=== PATIENT | female | born 1970 | race African-American/Black ===

== ENCOUNTER 2020-03-25 16:07 | Emergency (ER) | payer OTHER, SELFPAY ==
[2020-03-25 16:20] VITALS: BP 124/94; PULSE 106; RESP 20; TEMP 37.2; O2SAT 99
--- NOTE | 2020-03-25 16:24 | ED.URI ---
HPI - URI/Sore Throat General Chief Complaint: Upper Respiratory Infection Stated Complaint: hot/cold/headache Time Seen by Provider: 03/25/20 16:24 Source: patient Mode of arrival: ambulatory Limitations: no limitations History of Present Illness HPI Narrative: 49-year-old female who presents to [facility] care with complaints of sore throat, nasal drainage, pressure around eyes and forehead for the past 24 hours. Patient states that she felt hot and cold, with chills, has been taking Tylenol and Elderberry pills for her illness. Patient states that she was Covid tested on due to exposure to COVID but has not received results of test yet.Patient denies any shortness of breath or acute cough, respirations even and nonlabored with SAO2 99% on room air. MD elicited complaint: sore throat, rhinorrhea and sinus pain Pertinent past history: sinusitis Onset (ago): day(s) (1) Consistency: progressively worsening Severity: moderate Pain scale (0-10): 4 Description of mucous: clear Able to tolerate fluids by mouth: Yes Exacerbating factors: swallowing Relieving factors: nothing Context: sick contacts Associated symptoms: chills, rhinorrhea and sore throat Treatments prior to arrival: acetaminophen and other (Elderberry) Related Data Allergies Allergy/AdvReac Type Severity Reaction Status Date / Time No Known Allergies Allergy Verified 03/25/20 16:22 Review of Systems Review of Systems: Narrative: GENERAL: Well-appearing, well-nourished, and in no acute distress. HEAD: Normocephalic, atraumatic. EYES: PERRLA and EOMI. ENT: rhinnorrhea, sinus pressure and headache pain, sore throat, no ear pain NECK: Supple.lymphadenopathy CHEST: Clear to auscultation. No respiratory distress. no cough voiced HEART: Regular rate and rhythm. No murmur heard. Normal peripheral pulses. ABDOMEN: Soft, non tender, non distended, normal active bowel sounds. EXTREMITIES: Normal range of motion. No edema. SKIN: Warm, dry, no rash. NEURO: No focal deficits. Alert and oriented x3. All systems reviewed & are unremarkable except as noted in HPI and below PMFSH Past Medical History Medical History (Updated 03/25/20 @ 16:54 by Hemalatha Gandhi NP) Perirectal abscess Surgical History Surgical History (Updated 03/25/20 @ 16:51 by Hemalatha Gandhi NP) H/O thyroidectomy H/O tubal ligation Previous section Family History Family History Other Diabetes mellitus Social History Social History (Updated 03/25/20 @ 16:52 by Hemalatha Gandhi NP) Smoking status: Never smoker Alcohol intake: never Living arrangements: with family Gender identity (if verbalized by the patient): Female Comments At time of signature, agree with nursing past medical, surgical, social and family history. There is no relevant family history pertinent to the presenting complaint Exam Narrative: Exam Narrative: GENERAL: Well-appearing, well-nourished, and in no acute distress. HEAD: Normocephalic, atraumatic. EYES: PERRLA and EOMI. ENT: Nares red, clear rhinorrhea no epistaxis. Mucous membranes moist.TM's normal with good light reflex throat red with tonsil enlargement NECK: Supple.lymphadenopathy CHEST: Clear to auscultation. No respiratory distress.no acute cough, SAO2 99% on room air. HEART: Regular rate and rhythm. No murmur heard. Normal peripheral pulses. ABDOMEN: Soft, nontender, nondistended, normal active bowel sounds. EXTREMITIES: Normal range of motion. No edema. SKIN: Warm, dry, no rash. NEURO: No focal deficits. Alert and oriented x3. Course Vital Signs Vital signs: Vital Signs Temperature 37.2 C 03/25/20 16:20 Pulse Rate 106 H 03/25/20 16:20 Respiratory Rate 03/25/20 16:20 Blood Pressure 124/94 H 03/25/20 16:20 Pulse Oximetry 99 03/25/20 16:20 Temperature 37.2 C 03/25/20 16:20 Pulse Rate 106 H 03/25/20 16:20 Respiratory Rate 20 03/25/20 16:20 B
== END 2020-03-25 17:04 | disposition home or self-care (01) ==
PROVIDERS: Emergency Provider Registered Nurse
DX: J06.9 Acute upper respiratory infection, unspecified (principal); J03.90 Acute tonsillitis, unspecified
CPT/HCPCS: 87081; 87880; 99213; G0463

== ENCOUNTER 2020-03-30 21:41 | Emergency (ER) | payer OTHER, SELFPAY ==
--- NOTE | ~2020-03-30 | XR_ITS ---
EXAMINATION: XR chest 1V portable EXAM DATE: 03/30/2020 22:13 INDICATION: Cough. COVID-19 positive. TECHNIQUE: Portable AP frontal chest x-ray was obtained. Comparison is made to prior examination from 09/11/2016. FINDINGS: There is moderate amount of patchy bilateral mid and lower lung zone airspace disease, clin ical correlation. No pneumothorax or pleural effusion. Cardiomediastinal silhouette is normal. There are no osseous abnormalities identified. IMPRESSION: Moderate patchy bilateral mid and lower lung zone acute airspace disease. Reviewed, dictated and finalized at location A. IMPRESSION: Moderate patchy bilateral mid and lower lung zone acute airspace di sease.
--- NOTE | 2020-03-30 21:36 | ED.SOB ---
HPI - SOB/Dyspnea General Chief Complaint: Shortness of Breath/Dyspnea Stated Complaint: sob, Source: patient and EMS Mode of arrival: EMS Limitations: no limitations History of Present Illness HPI Narrative: Patient is a 49-year-old female who presents for evaluation of shortness of breath in the setting of recent COVID diagnosis. Patient became symptomatic March 21, tested March 22, positive results called to her this week. Patient has had intermittent fever, chills, myalgias, chest pain, shortness of breath and dry cough. She reports nausea, no current diarrhea. No abdominal pain. She has taken Tylenol without much improvement in her symptoms. She was seen in urgent care on March 25 and started on amoxicillin. Related Data Allergies Allergy/AdvReac Type Severity Reaction Status Date / Time No Known Allergies Allergy Verified 03/25/20 16:22 Review of Systems Review of Systems: Narrative: CONSTITUTIONAL: Reports fever and chills EYES: Denies visual changes, redness, or discharge. ENT: Reports rhinorrhea, congestion and sore throat CARDIOVASCULAR: Reports mild chest pain chronically over the past 3 days RESPIRATORY: Reports cough and shortness of breath. GASTROINTESTINAL: Denies abdominal pain, reports nausea GENITOURINARY: Denies dysuria or hematuria. SKIN: Denies rash or itching. MUSCULOSKELETAL: Denies back pain, reports arthralgias and myalgias NEUROLOGIC: Reports mild headache PMFSH Past Medical History Medical History Perirectal abscess Surgical History Surgical History H/O thyroidectomy H/O tubal ligation Previous section Social History Social History Smoking status: Never smoker Alcohol intake: never Gender identity (if verbalized by the patient): Female Exam Narrative: Exam Narrative: GENERAL: Awake, alert, conversant HEAD: Normocephalic, atraumatic. EYES: PERRLA and EOMI. ENT: Nares clear, no rhinorrhea or epistaxis. Mucous membranes moist. NECK: Supple. CHEST: No respiratory distress, breathing even and non labored, no tachypnea, no wheezing, no crackles HEART: Regular rate, sinus rhythm ABDOMEN:Non distended, non tender EXTREMITIES: Normal range of motion. No edema. SKIN: Warm, dry, no rash. NEURO:No focal deficits. Alert and oriented x3 Course Vital Signs Vital signs: Vital Signs Temperature 36.2 C L 03/30/20 21:49 Pulse Rate 106 H 03/30/20 21:49 Respiratory Rate 22 H 03/30/20 21:49 Pulse Oximetry 96 03/30/20 21:49 Temperature 36.2 C L 03/30/20 21:49 Pulse Rate 98 03/30/20 23:35 Respiratory Rate 20 03/30/20 23:35 Blood Pressure 117/80 03/30/20 23:35 Pulse Oximetry 98 03/30/20 23:35 MDM - SOB/Dyspnea MDM Narrative Medical decision making narrative: Patient has a diagnosis of COVID-19, is over 1 week of illness at this point. Her laboratory results are actually reassuring. Her chest x-ray shows moderate, patchy infiltrates, so we can go ahead and treat for any possible pneumonia type component, but I do suspect this is all just viral in nature. Patient has no hypoxemia in the ER. No elevation in troponin. I doubt PE given no troponin elevation, no respiratory distress, no hypoxemia. I advised patient to continue Tylenol, ibuprofen, and we had an educated discussion about the risks and benefits of taking a daily aspirin. Otherwise, there is no proven treatment for this virus other than symptomatic care and time. We discussed isolation precautions and why she needs to stay at home and quarantine from others. She was given information for primary care physician follow-up, and advised when to return to the emergency department. As the patient has no stable vital signs, no hypoxemia, she was then discharged home. Differential Diagnosis Differential diagnosis: Likely acute exacerbation o
[2020-03-30 21:49] VITALS: PULSE 106; RESP 22; TEMP 36.2; O2SAT 96
--- NOTE | 2020-03-30 21:52 | ECG_ITS ---
Measurements Intervals [place] Rate: 104 P: 24 NC: 134 QRS: -6 QRSD: 93 T: -9 QT: 341 QTc: 450 Interpretive Statements SINUS TACHYCARDIA DELAYED PRECORDIAL R/S TRANSITION NONSPECIFIC T-WAVE ABNORMALITY- ANTEROLAT/INF LEADS BASELINE ARTIFACT- I, III BORDERLINE ECG Electronically Signed On 03-31-2020 7:34:01 CDT by Jd Ruiz D.O.
[2020-03-30] MEDS: ASPIRIN 81 MG CHEWABLE TABLET 324 MG PO (22:14)
[2020-03-30] MEDS: ONDANSETRON INJ 4 MG/2 ML VIAL IV PUSH (22:14)
[2020-03-30 22:15] VITALS: BP 120/83; PULSE 103; RESP 20; O2SAT 96
[2020-03-30] MEDS: SODIUM CHLORIDE 0.9% IV 500 ML 999 ML IV CONT (22:15)
[2020-03-30] MEDS: MORPHINE SULFATE 4 MG/ML INJ IV PUSH (22:15)
[2020-03-30 22:25] LABS: Basophils Percent Auto 0.2 % (0.2-1.2); Hematocrit 40.5 % (37.0-47.0); Hemoglobin 13.4 g/dL (12.0-15.0); Immature Granulocyte Absolute 0.02 K/mm3 (0.00-0.031); Immature Granulocyte Percent A 0.3 % (0-0.5); Lymphocytes Absolute Auto 1.18 K/mm3 (0.9-3.2); Mean Corpuscular HGB Conc 33.1 g/dl (32-36); Mean Corpuscular Hemoglobin 28.2 pg (26-34); Mean Corpuscular Volume 85.3 fl (80-100); Mean Platelet Volume 10.4 fl (7.4-10.4); Monocytes Absolute Auto 0.3 K/mm3 (0.1-0.6); Monocytes Percent Auto 4.8 % (2.6-8.5); Neutrophils Absolute Auto 4.7 K/mm3 (1.3-6.7); Neutrophils Percent Auto 75.7 % (45.5-73.1); Platelet Count Result 205 k/mm3 (150-375); Red Blood Count 4.75 M/mm3 (4.2-5.4); White Blood Count 6.2 K/mm3 (4.5-10.0)
[2020-03-30 22:33] LABS: INR 0.9; Prothrombin Time 12.2 Seconds (11.1-14.7)
[2020-03-30 22:35] LABS: Partial Thromboplastin Time 21.9 SECONDS (22.3-36.8)
[2020-03-30 22:41] LABS: Lactate Dehydrogenase 921 U/L (313-618)
[2020-03-30 22:43] LABS: Alanine Aminotransferase 53 U/L (4-35); Alkaline Phosphatase 65 U/L (38-126); Anion Gap 11.4 mmol/L (7-16); Aspartate Amino Transferase 75 U/L (14-36); Bilirubin,Total 0.3 mg/dL (0.2-1.3); Blood Urea Nitrogen 9 mg/dL (7-17); CRP 2.2 mg/dL (<1.0); Calcium 8.4 mg/dL (8.4-10.2); Carbon Dioxide 30 mmol/L (22-30); Chloride 99 mmol/L (98-107); Estimated CRCL calculation 120 ml/min; Estimated Glomerular Filt Rate > 60; Glucose 119 mg/dL (65-105); Potassium 3.4 mmol/L (3.4-5.0); Sodium 137 mmol/L (137-145)
[2020-03-30 22:51] LABS: Troponin I < 0.012 ng/mL (0.000-0.034)
[2020-03-30 23:01] VITALS: BP 127/60; PULSE 97; RESP 20; O2SAT 97
--- NOTE | 2020-03-30 23:07 | PC.NURSE ---
called [facility] for status on eta...0030 (due to call volume exceeding availability)
[2020-03-30 23:35] VITALS: BP 117/80; PULSE 98; RESP 20; O2SAT 98
== END 2020-03-30 23:59 | disposition home or self-care (01) ==
PROVIDERS: Emergency Provider Emergency Medicine
DX: U07.1 COVID-19 (principal); E89.0 Postprocedural hypothyroidism; R00.0 Tachycardia, unspecified; R94.31 Abnormal electrocardiogram [ECG] [EKG]
CPT/HCPCS: 36415; 71045; 80053; 82728; 83615; 84484; 85025; 85610; 85730; 86140; 93005; 96361; 96374; 96375; 99284; A9270; J2270; J2405; J7040

== ENCOUNTER 2023-04-07 15:16 | Emergency (ER) | payer OTHER, SELFPAY ==
[2023-04-07 15:25] VITALS: BP 136/84; PULSE 85; RESP 18; TEMP 36.7; O2SAT 100
--- NOTE | 2023-04-07 15:37 | ED.SKABFB ---
HPI - Skin/Abscess/Foreign Bdy General Chief complaint: Extremity Problem,Nontraumatic Stated complaint: Break outs; Swollen right foot Source: patient and RN notes reviewed History of Present Illness HPI narrative: 52 yo F presents to urgent care with complaints of an itchy and burning rash to her body x 3 months. Pt states when it first started she thought it was eczema but she states its just starting to get worse. Pt has applied a topical, prescription, medication from a friend with no relief. Denies any fevers, chills, or vomiting. Denies any new detergents, lotions, soaps, or medication. Related Data Allergies Allergy/AdvReac Type Severity Reaction Status Date / Time No Known Allergies Allergy Verified 03/25/20 16:22 Review of Systems Review of Systems: CONSTITUTIONAL: Denies fever, chills, or sweats. EYES: Denies visual changes, redness, or discharge. ENT: Denies otalgia and sore throat CARDIOVASCULAR: Denies chest pain, palpitations, or edema. RESPIRATORY: Denies cough or dyspnea. GASTROINTESTINAL: Denies abdominal pain, nausea, vomiting, or diarrhea. GENITOURINARY: Denies dysuria or hematuria. SKIN: itchy and burning rash MUSCULOSKELETAL: Denies back pain, joint pain, or myalgia. NEUROLOGIC: Denies headache, numbness, or weakness. Pertinent positives per HPI. [facility] Past Medical History Medical History (Updated 04/07/23 @ 15:38 by Evy Strong, BOYD) Perirectal abscess Surgical History Surgical History H/O thyroidectomy H/O tubal ligation Previous section Family History Family History Other Diabetes mellitus Social History Social History Smoking status: Never smoker Alcohol intake: never Living arrangements: with family Gender identity (if verbalized by the patient): Female Comments At the time of my signature, I reviewed and agree with the nursing past medical, surgical, social, and family history. There is no relevant family history pertinent to the patient complaint. Exam Narrative: GENERAL: This is a well-nourished, well-developed patient, in no apparent distress. HEAD: normocephalic, atraumatic. EYES: Sclera clear/white. Vision is grossly intact. EARS: External ears normal, auditory canals clear and without drainage. Hearing grossly intact. NOSE: External nose normal with no obvious nasal discharge, nares without redness, no rhinorrhea. THROAT: Mucous membranes moist, posterior pharynx clear. NECK: Neck supple, non-tender without lymphadenopathy, masses or thyromegaly. CARDIOVASCULAR: Regular rate RESPIRATORY: no respiratory distress SKIN: various, scattered, dry, macules, papules, and erythremia to areas such as neck, bilateral lower extremities, face, and arms. no drainage. NEURO: awake, alert, and oriented to person, place and time. There were no obvious focal neurologic abnormalities. EXTREMITIES: No clubbing, cyanosis, or edema. No joint tenderness, effusion, or edema noted. Course Course Level of Care: Express Care Visit Vital Signs Vital signs: Vital Signs Temperature 98.1 F 04/07/23 15:25 Pulse Rate 85 04/07/23 15:25 Respiratory Rate 18 04/07/23 15:25 Blood Pressure 136/84 04/07/23 15:25 Pulse Oximetry 100 04/07/23 15:25 Temperature 98.1 F 04/07/23 15:25 Pulse Rate 85 04/07/23 15:25 Respiratory Rate 18 04/07/23 15:25 Blood Pressure 136/84 04/07/23 15:25 Pulse Oximetry 100 04/07/23 15:25 Reviewed MDM - Skin/Abscess/Foreign Bdy MDM Narrative Medical decision making narrative: Take the steroids as directed. Follow up with a game agent and/or assistant associate professor Differential Diagnosis Differential diagnosis: Likely eczema, impetigo and other (autoimmune disorder) Critical Care Time Critical Care Time Critical Care Time: No
== END 2023-04-07 15:50 | disposition home or self-care (01) ==
PROVIDERS: Emergency Provider Nurse Practitioner Family
DX: R21 Rash and other nonspecific skin eruption (principal)
CPT/HCPCS: 99213; G0463

== ENCOUNTER 2025-01-02 09:48 | Emergency (ER) | payer OTHER, SELFPAY ==
--- NOTE | 2025-01-02 09:50 | ED_ITS ---
HPI - Skin/Abscess/Foreign Bdy General Chief complaint: Skin/Abscess/Foreign Body Stated complaint: Skin Irritation Source: patient and RN notes reviewed Mode of arrival: ambulatory Limitations: no limitations History of Present Illness HPI narrative: Patient is a 54-year-old female who presents to the [facility] with complaints of skin irritation under her left axilla. She states that she has noted a tenderness to the area over the last week. She had spontaneous drainage last night. States that the wound is no longer tender. There is some mild erythema. Denies recent fevers. Related Data Allergies Allergy/AdvReac Type Severity Reaction Status Date / Time No Known Allergies Allergy Verified 01/02/25 09:58 Review of Systems Review of Systems: CONSTITUTIONAL: Denies fever, chills, or sweats. EYES: Denies visual changes, redness, or discharge. ENT: Denies otalgia and sore throat CARDIOVASCULAR: Denies chest pain, palpitations, or edema. RESPIRATORY: Denies cough or dyspnea. GASTROINTESTINAL: Denies abdominal pain, nausea, vomiting, or diarrhea. GENITOURINARY: Denies dysuria or hematuria. SKIN: Reports skin irritation to left axilla. MUSCULOSKELETAL: Denies back pain, joint pain, or myalgia. NEUROLOGIC: Denies headache, numbness, or weakness. Pertinent positives per HPI. [facility] Past Medical History Medical History (Updated 01/02/25 @ 10:02 by Evy Donaldson APRN) Perirectal abscess Surgical History Surgical History Previous section H/O tubal ligation H/O thyroidectomy Family History Family History Other Diabetes mellitus Social History Social History Smoking status: Never smoker Alcohol intake: never Living arrangements: with family Gender identity (if verbalized by the patient): Female Comments At the time of my signature, I reviewed and agree with the nursing past medical, surgical, social, and family history. There is no relevant family history pertinent to the patient complaint. Exam 2 Narrative: GENERAL: This is a well-nourished, well-developed patient, in no apparent distress. HEAD: normocephalic, atraumatic. EYES: Sclera clear/white. Vision is grossly intact. EARS: External ears normal. Hearing grossly intact. NOSE: External nose normal with no obvious nasal discharge, nares without redness, no rhinorrhea. THROAT: Mucous membranes moist, posterior pharynx clear. NECK: Neck supple, non-tender without lymphadenopathy, masses or thyromegaly. CARDIOVASCULAR: Regular rate and rhythm without murmurs, gallops, or rubs. RESPIRATORY: Clear to auscultation. Breath sounds equal bilaterally. No wheezes, rales, or rhonchi. GASTROINTESTINAL: Abdomen soft, non-tender, nondistended. Bowel sounds are active. No hepato-splenomegaly, or palpable masses. No guarding. SKIN: 2 x 2 cm abscess to left axilla with mild surrounding erythema. No tenderness. Spontaneous drainage noted (purulent). NEURO: awake, alert, and oriented to person, place and time. There were no obvious focal neurologic abnormalities. Course Course Level of Care: Express Care Visit Vital Signs Vital signs: Vital Signs Temperature 98.4 F 01/02/25 09:57 Pulse Rate 89 01/02/25 09:57 Respiratory Rate 16 01/02/25 09:57 Blood Pressure 121/74 01/02/25 09:57 Pulse Oximetry 99 01/02/25 09:57 Temperature 98.4 F 01/02/25 09:57 Pulse Rate 89 01/02/25 09:57 Respiratory Rate 16 01/02/25 09:57 Blood Pressure 121/74 01/02/25 09:57 Pulse Oximetry 99 01/02/25 09:57 Reviewed MDM - Skin/Abscess/Foreign Bdy MDM Narrative Medical decision making narrative: Clean with soap and water only; Avoid using alcohol and peroxide. Elevate the affected area if possible Alternate Tylenol/ibuprofen for as needed for pain Acetaminophen(Tylenol) 650- 1000mg every 4-6hours with max of 4000mg/day. Nonsteroidal anti-inflammatory agent (NSAIDs-ibuprofen): 400mg every 4-6hours with max 2400mg/day Take antibiotic until it's gone. Please schedule a follow up visit with your personal physician for further evaluation and treatment within 3-5days OR if your symptoms persist, change or worsen significantly before you can contact your personal physician then please, without delay, go to the emergency department for further evaluation. Differential Diagnosis Differential diagnosis: Likely abscess of skin or subcutaneous tissue, cellulitis, contact dermatitis and other (abscess) Critical Care Time Critical Care Time Critical Care Time: No Discharge Plan Discharge Clinical Impression: Abscess of left axilla Patient Disposition: Home Condition: Stable Instructions: Antibiotic Form, Abscess (ED) Additional Instructions: Clean with soap and water only; Avoid using alcohol and peroxide. Elevate the affected area if possible Alternate Tylenol/ibuprofen for as needed for pain Acetaminophen(Tylenol) 650- 1000mg every 4-6hours with max of 4000mg/day. Nonsteroidal anti-inflammatory agent (NSAIDs-ibuprofen): 400mg every 4-6hours with max 2400mg/day Take antibiotic until it's gone. Please schedule a follow up visit with your personal physician for further evaluation and treatment within 3-5days OR if your symptoms persist, change or worsen significantly before you can contact your personal physician then please, without delay, go to the emergency department for further evaluation. Patient Language: Mauritian Prescriptions: New cephalexin 500 mg capsule 500 mg PO Q8H 10 Days Qty: 30 0RF sulfamethoxazole-trimethoprim 800-160 mg tablet 1 tablet PO Q12H 10 Days Qty: 20 0RF Follow-up/Referrals: PHYSICIAN,COMMERCIAL INSTRUCTOR SUPERVISOR [Primary Care Provider] - Time of Disposition: 10:09
[2025-01-02 09:57] VITALS: BP 121/74; PULSE 89; RESP 16; TEMP 36.9; O2SAT 99
== END 2025-01-02 10:11 | disposition home or self-care (01) ==
PROVIDERS: Emergency Provider Nurse Practitioner
DX: L02.412 Cutaneous abscess of left axilla (principal)
CPT/HCPCS: 87070; 87075; 87205; 99213; G0463